=== PATIENT | female | born 1990 | race Two or more races ===

== ENCOUNTER 2022-10-19 05:26 | Emergency (ER) | payer OTHER ==
[~2022-10-19] VITALS: Ht 175.3 cm; Wt 79.8 kg
[2022-10-19] MEDS ORDERED: CIPRO500 MG PO (06:37)
== END 2022-10-19 08:29 | disposition home or self-care (01) ==
LOC: ER 05:26
DX: S81.811A Laceration without foreign body, right lower leg, initial encounter (principal); W25.XXXA Contact with sharp glass, initial encounter; Y93.9 Activity, unspecified; Y92.9 Unspecified place or not applicable; Y99.9 Unspecified external cause status